=== PATIENT | female | born 1975 | race American Indian/Alaskan Native ===

== ENCOUNTER 2018-03-08 00:50 | Emergency (ER) | payer OTHER ==
[2018-03-08 01:25] VITALS: BP 128/97
[2018-03-08] MEDS ORDERED: NORCO 7.5/325 PO ONE (07:29)
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
== END 2018-03-08 07:53 | disposition home or self-care (01) ==
LOC: ED 00:50
DX: T24.7 Corrosion of third degree of lower limb, except ankle and foot (principal); Z87.891 Personal history of nicotine dependence; Z90.49 Acquired absence of other specified parts of digestive tract; X58.XXXD Exposure to other specified factors, subsequent encounter
CPT/HCPCS: 99283